=== PATIENT | female | born 1960 | race Caucasian/White ===

== ENCOUNTER 2019-01-20 13:58 | Emergency (ER) | payer SELFPAY ==
--- NOTE | 2019-01-20 15:05 | RAD ---
EXAM DESCRIPTION: XR Fingers, Right, 3 views CLINICAL HISTORY: 59 years Female, pain and swelling COMPARISON: None. FINDINGS: The PA and oblique views include the third, fourth, and fifth fingers of the right hand. On the lateral view, it appears that the fourth finger is best profiled. There is no evidence of acute fracture or dislocation or destructive bony lesion. Joint spaces appear maintained. There may be minimal soft tissue swelling of the fourth finger and at the dorsal aspect of one of the metacarpal heads. IMPRESSION: No bony abnormality identified. Electronically signed by: Denilson Guerra MD 01/20/2019 3:04 PM [facility]
--- NOTE | 2019-01-20 15:11 | ED.PDOC ---
History of Present Illness - General Chief Complaint: Bite: Animal/Insect/Human Stated Complaint: Accidental dog bite Time Seen by Provider: 01/20/19 14:15 - History of Present Illness Initial Comments: c/o having pain and swelling in the R 4th finger started 3 weeks back when bog bite her , taking Augmentin and clindamycin , pt says that despite taking abx still there is no improvement , no fever or chills Improving Factors: nothing Worsening Factors: nothing Associated Symptoms: denies symptoms Allergies/Adverse Reactions: Allergies Acetaminophen [From Tylenol with Codeine #3] Allergy (Verified 01/20/19 14:30) Codeine [From Tylenol with Codeine #3] Allergy (Verified 01/20/19 14:30) Meperidine and Related Allergy (Verified 01/20/19 14:30) Morphine Allergy (Verified 01/20/19 14:30) Aspirin [From Percodan] Adverse Reaction (Verified 01/20/19 14:30) Oxycodone [From Percodan] Adverse Reaction (Verified 01/20/19 14:30) Review of Systems - Review of Systems Constitutional: States: no symptoms reported EENTM: States: no symptoms reported Respiratory: States: no symptoms reported Cardiology: States: no symptoms reported Gastrointestinal/Abdominal: States: no symptoms reported Genitourinary: States: no symptoms reported Musculoskeletal: States: no symptoms reported Skin: States: see HPI Neurological: States: no symptoms reported Endocrine: States: no symptoms reported Hematologic/Lymphatic: States: no symptoms reported All other Systems: Reviewed and Negative Past Medical History (General) - Patient Medical History Hx Stroke: No Hx of COPD: No Hx Cardiac Disorders: No Hx Hypertension: No Hx Diabetes: No Hx Cancer: No Surgical History: appendectomy, cholecystectomy, tonsillectomy, other - Vaccination History Hx Tetanus, Diphtheria Vaccination: No Hx Influenza Vaccination: No Hx Pneumococcal Vaccination: No - Social History Hx Tobacco Use: Yes Hx Alcohol Use: No Hx Substance Use: No Hx Substance Use Treatment: No Hx Depression: Yes - Female History Patient is a Female of Child Bearing Age (10 -59 yrs old): No Patient : No Family Medical History - Family History Mother Family History: Unknown Physical Exam - Physical Exam General Appearance: Alert, Comfortable Eye Exam: bilateral normal Ears, Nose, Throat: normal ENT inspection Neck: full range of motion, supple, normal inspection Extremity: other - 4th R finger swollen and slightly erythematous and tender distally Departure - Departure Clinical Impression: Cellulitis, Abscess Time of Disposition: 15:13 Disposition: Discharge to Home or Self Care Condition: Good Departure Forms: ED Discharge - Pt. Copy, Patient Portal Self Enrollment Diet: resume usual diet Activity: increase activity as tolerated, walking as tolerated Additional Instructions: Follow up PCP in 1-2 days Follow up ortho-hand in 1-2 days Continue meds
[2019-01-20] MEDS ORDERED: NEOMYCIN-BACITRACIN-POLYMYXIN 0.9 GM UD TOP ONE (15:18)
[2019-01-20 15:38] VITALS: BP 118/90; TEMP 98.2; O2SAT 96
== END 2019-01-20 15:28 | disposition home or self-care (01) ==
LOC: ER 13:58
DX: L02.511 Cutaneous abscess of right hand (principal); F32.9 Major depressive disorder, single episode, unspecified; Z87.891 Personal history of nicotine dependence; Z88.6 Allergy status to analgesic agent; Z88.5 Allergy status to narcotic agent

== ENCOUNTER → 2019-04-25 | Outpatient (CLI) | payer OTHER ==
--- NOTE | 2019-04-26 09:24 | MRI ---
PROVIDED CLINICAL HISTORY/REASON FOR EXAM: Postlaminectomy syndrome, not elsewhere classified TECHNIQUE: Multiplanar, multisequence MRI examination performed of the lumbar spine without intravenous contrast material. COMPARISON: None available. FINDINGS: Five lumbar type vertebra are assumed. The designated L5/S1 disc space is at axial T2 image 3. Alignment: No acute subluxation. Postoperative: Left unilateral L4/L5 vertical stabilization rods and associated pedicle screws. L4/L5 anterior interbody fusion. L5/S1 interbody fusion. Fracture: None present. Paraspinal Soft Tissues: Posterior paraspinal scarring. Retroperitoneum: Visible structures are unremarkable. Conus Medullaris: Termination at L2 level. Morphology is normal. L1/2: Bilateral facet hypertrophy. No significant stenosis. L2/3: Bilateral facet hypertrophy with thickening of the ligamentum flavum. No significant stenosis. L3/4: Disc desiccation with loss of disc space height. Small symmetric disc bulge. Bilateral facet hypertrophy with thickening of the ligamentum flavum. Trace right facet effusion. Mild bilateral lateral recess stenosis. No significant central canal stenosis. No significant neural foraminal narrowing. L4/5: Postoperative changes. No significant central canal stenosis. No significant neural foraminal narrowing. Bilateral facet hypertrophy. L5/S1: Postoperative changes. Posterior ridging osteophytes. Ossific fragment in the right neural foramen measuring 0.6 x 0.7 cm, which contributes to [id number] right neural foraminal narrowing bilateral facet hypertrophy. Right facet synovial cyst measuring 1.7 cm CC by 0.8 cm AP. No significant central canal stenosis. No significant left neural foraminal narrowing. IMPRESSION: Postoperative lumbar spine a superimposed acquired degenerative changes as detailed above most pronounced at L3/L4 and L5/S1. Electronically signed by: Zachary Yao MD 04/26/2019 9:23 AM [facility]
== END ==
LOC: MRI 13:55
PROVIDERS: ATTEND Anesthesiology
DX: M96.1 Postlaminectomy syndrome, not elsewhere classified (principal); M51.36 Other intervertebral disc degeneration, lumbar region; M25.78 Osteophyte, vertebrae; Z98.890 Other specified postprocedural states

== ENCOUNTER → 2019-09-18 | Outpatient (CLI) | payer OTHER ==
--- NOTE | 2019-09-19 10:39 | RAD ---
EXAM DESCRIPTION: Cervical Spine,5 Views: CR/DR/XR CLINICAL HISTORY: 59 years Female POSTLAMINECTOMY SYNDROME COMPARISON: MR scans of the cervical spine thoracic spine on this visit.. TECHNIQUE: 4 views: AP, lateral, bilateral obliques. FINDINGS: Cervical type vertebra: 7. Disk spaces: Moderate narrowing C3-C4 with marginal spurs. Moderate to severe narrowing C5-C6 with marginal spurs. Facet joints: Unilateral or bilateral lateral facet arthrosis from C3-C4 down to C6-C7. Compression deformities: None. Bone Density: Minimally decreased. Bilateral obliques: Narrowing C6-C7 neural foramen on the left. Narrowing C4-C5 neural foramen on the right. Alignment: Lordosis maintained. Trace dextroscoliosis. Soft Tissue: Negative. IMPRESSION: Cervical spondylosis particularly C3-C4 and C5-C6. Neural foraminal narrowing as described above. Unilateral or bilateral facet arthrosis. Please refer to MR cervical spine report and images. Electronically signed by: Howard Gilliam MD 09/19/2019 10:37 AM CDT
--- NOTE | 2019-09-19 11:31 | MRI ---
EXAM DESCRIPTION: Cervical Spine: MRI. CLINICAL HISTORY: 59 years Female NECK PAIN COMPARISON: MRI scan thoracic spine and radiograph cervical spine on this visit. TECHNIQUE: Multiplanar, high-field MRI, multiple sequences, non-contrast Cervical spine. FINDINGS: C2-C3: Minimal disc desiccation with disc space maintained. Left uncinate spur. Bilateral facet joints are negative. Borderline left neural foraminal stenosis. Canal and right neuroforamen are patent. C3-C4: Disc desiccation and minimal disc space loss. Anterior bulging. 2 mm grade 1 anterolisthesis. Posterior disc osteophyte bulge abutting the cord more to the left of midline. Posterior ligament thickening. Mild right neural foraminal narrowing with left neural foraminal stenosis. Moderate canal narrowing. C4-C5: Disc desiccation and minimal disc space loss. Anterior and posterior bulge. Bilateral small uncinate spurs and posterior ligament thickening. Borderline mild central canal stenosis. Moderate bilateral neural foraminal narrowing. C5-C6: Disc desiccation minimal to moderate disc space loss. Trace retrolisthesis. Anterior and posterior disc bulging. Moderate canal narrowing. Posterior disc abutting the cord. Also narrowing the right neural foramen moderately. Minimal narrowing left neural foramen. Facet joints are unremarkable. C6-C7: Disc space maintained with posterior bulging and midline protrusion abutting the cord. Bilateral facet joints are negative. Minimal ligament thickening. Moderate canal narrowing. Bilateral mild neural foraminal narrowing. Normal signal in the C7-T1 disc and T1-T2 disc with no bulging. Disc spaces preserved. Canal and neural foramina are patent. Facet joints are negative. Spinal alignment otherwise negative. No cord compression or cord edema. Atlantoaxial joint unremarkable.. Base of the cerebellar tonsils is above the foramen magnum. Paravertebral soft tissues negative. Vertebral bodies are not compressed at any level. Otherwise normal marrow signal in the remaining vertebral bodies and the posterior elements. Probable secretion versus polyp on the right vocal cord. More superiorly, minimal effacement of the right posterior lateral hypopharynx above the right false cord. IMPRESSION: 1. Multilevel disc space desiccation and disc space loss, endplate spondylosis. 2. C2-C3 left uncinate spur and borderline left neural foraminal stenosis. 3. Grade 1 anterolisthesis at C3-C4 with left neural foraminal stenosis. Correlate for left C4 radiculopathy. 4. Borderline mild central canal stenosis at C4-C5 is multifactorial. 5. Trace retrolisthesis at C5-C6. Moderate canal narrowing. 6. Probable secretion versus polyp on the right true vocal cord. Questionable thickening of the inferior hypopharynx to the right of midline above the false cord with minimal effacement of the airway. Correlate with clinical findings. Electronically signed by: Howard Gilliam MD 09/19/2019 11:29 AM CDT
--- NOTE | 2019-09-19 11:48 | MRI ---
EXAM DESCRIPTION: Thoracic Spine w/o Contrast: Magnetic Resonance Imaging. CLINICAL HISTORY: DEGENERATIVE DISC DISEASE COMPARISON: MRI scan cervical spine and cervical spine radiographs on the same visit. MRI scan lumbar spine April 2019. TECHNIQUE: Multiplanar, multiple standard sequences, non contrast MRI, thoracic spine. FINDINGS: Disc desiccation and disc space loss at T3-T4, T8-T9, and T9-T10. No disc bulging. No canal or foraminal stenosis. Disc desiccation at other levels without disc space loss. Remaining discs with normal signal. Disc spaces are preserved. Canal and foramina are patent. Facet joints are unremarkable. Conus terminates at L1. Cord with normal signal, no compression. No scoliosis, but exaggerated kyphosis upper thoracic spine. Paravertebral soft tissues are unremarkable. Artifact partially obscuring vertebral body signal from T2 through T6. Otherwise normal marrow signal in the remaining vertebral bodies and the posterior elements. Vertebral bodies are not compressed at any level. IMPRESSION: Minimal disc desiccation and disc space loss. No significant bulging. Facet joints are unremarkable. No canal and no foraminal stenosis. Normal signal in the cord with no compression.. Electronically signed by: Howard Gilliam MD 09/19/2019 11:47 AM CDT
== END ==
LOC: MRI 13:59
PROVIDERS: ATTEND Orthopaedic Surgery Orthopaedic Surgery of the Spine
DX: M96.1 Postlaminectomy syndrome, not elsewhere classified (principal); M47.892 Other spondylosis, cervical region; M46.92 Unspecified inflammatory spondylopathy, cervical region; M51.36 Other intervertebral disc degeneration, lumbar region

== ENCOUNTER → 2019-10-29 | Outpatient (CLI) | payer OTHER ==
--- NOTE | 2019-10-30 10:43 | CT ---
TECHNIQUE: Axial images of the lumbar spine were obtained with multiple reconstructions provided. This exam was performed according to our departmental dose-optimization program, which includes automated exposure control, adjustment of the mA and/or kV according to patient size and/or use of iterative reconstruction technique. CLINICAL HISTORY PROVIDED: M51.36 COMPARISON: 04/25/2019 FINDINGS: For consistency the same numbering system is used on the April 25, 2019 examination will be used on today's examination. Therefore L1 is rib-bearing and there are transitional features at the lumbosacral junction. Postoperative: Left lateral vertical stabilization matthew with pedicle screws at L4/L5. Minimal osseous purchase of the left L5 pedicle screw. Prior L5/S1 fusion with solid osseous bridging. L4/L5 anterior/interbody fusion. Solid osseous bridging. Alignment: Normal. No acute subluxation. Fracture: None present. Paraspinal Soft Tissues/ Retroperitoneum: Partially peripherally calcified fluid collection dorsal to the designated L5 vertebral body. L1/2: No significant abnormality. L2/3: Bilateral facet hypertrophy. No significant stenosis. L3/4: Disc space narrowing with endplate degenerative change and vacuum disc phenomenon. Bilateral facet hypertrophy. No significant stenosis. L4/5: Prior fusion. Posterior ridging osteophytes. Bilateral facet hypertrophy. No significant stenosis identified. L5/S1: Prior fusion. Posterior ridging osteophytes without significant stenosis. IMPRESSION: Postoperative lumbar spine with minimal osseous purchase of the left L5 pedicle screw. Superimposed acquired degenerative changes as detailed above. Electronically signed by: Zachary Yao MD 10/30/2019 10:41 AM CDT
== END | disposition home or self-care (01) ==
LOC: CT 14:00
PROVIDERS: ATTEND Orthopaedic Surgery Orthopaedic Surgery of the Spine
DX: M51.36 Other intervertebral disc degeneration, lumbar region (principal); M96.1 Postlaminectomy syndrome, not elsewhere classified